=== PATIENT | female | born 1970 | race African-American/Black ===

== ENCOUNTER 2016-09-30 23:06 | Emergency (ER) | payer MEDICAID ==
[~2016-09-30] VITALS: Ht 167.6 cm; Wt 140.6 kg
[~2016-09-30 23:06] MED LIST: IBUPROFEN600 MG ORAL; KEFLEX500 MG ORAL; LISINOPRIL10 MG ORAL; MACROBID100 MG ORAL; PENICILLIN V P500 MG PO; TRAMADOL HCL50 MG ORAL; VICODIN 5-5001 EACH PO; ZOFRAN ODT4 MG ORAL
[2016-09-30] MEDS ORDERED: AMLODIPINE BESYL5 MG ORAL (23:37)
[2016-09-30] MEDS ORDERED: Ketorolac 60mg Inj IM ONE (23:45)
--- NOTE | 2016-10-01 00:51 | Emergency Room Report ---
History of Present Illness General Chief Complaint: Upper Extremity Injury Source: Patient Present Illness HPI Patient is a 46-year-old female who presented after having increased left shoulder and elbow pain after fall. The patient was having increased pain with elbow movement. The patient was unable to straighten out her elbow as well as unable to supinate and pronate without pain. Patient denied any other locations of pain. Patient denied loss of consciousness. She denies neck or wrist pain. Allergies: Coded Allergies: No Known Allergies (Verified , 05/10/14) Patient History Past Medical History: see triage record Reviewed Nursing Documentation: PMH: Agreed, PSxH: Agreed Nursing Documentation-PMH Hx Hypertension: Yes Review of Systems All Other Systems: negative except mentioned in HPI Physical Exam Vital Signs Date Time Temp Pulse Resp B/P Pulse Ox O2 Delivery O2 Flow Rate FiO2 09/30/16 23:32 97.3 64 16 164/84 100 Room Air General Appearance: well appearing, no apparent distress, alert, GCS 15 Head: normocephalic, atraumatic ENT: hearing grossly normal, normal voice Neck: full range of motion, supple Respiratory: no respiratory distress, speaking full sentences Cardiovascular #1: normal inspection, normal peripheral pulses, regular rate, rhythm Gastrointestinal: normal inspection, normal bowel sounds, non tender, soft, no mass Musculoskeletal: no calf tenderness Neurologic: normal inspection, alert, oriented x3, responsive, 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 Differential diagnosis included wasn't limited to contusion, fracture, dislocation, cellulitis among others. X-ray imaging of the left elbow 3 views interpreted by me. Showed a radial head fracture which was minimally displaced. There is a posterior fat pad noted. X- ray of the shoulder 3 views showed normal bony alignment without evident fracture.The patient is advised to follow up with primary care doctor in 1-2 days. She is advised that she would need orthopedic referral . Patient is advised to return if any worsening condition or if any changes in status that are concerning. Last Vital Signs Date Time Temp Pulse Resp B/P Pulse Ox O2 Delivery O2 Flow Rate FiO2 09/30/16 23:32 97.3 64 16 164/84 100 Room Air Status: improved Disposition: HOME, SELF-CARE Condition: Stable Referrals: NON PHYSICIAN (PCP) Tao Smith Oct 01, 2016 00:51
[2016-10-01] MEDS ORDERED: NORCO 5-325 TA1 EAC1 ORAL (00:55)
[2016-10-01] MEDS ORDERED: IBUPROFEN600 MG ORAL (00:55)
[2016-10-01 01:21] VITALS: BP 157/83
[2016-10-01 01:22] VITALS: BP 164/84
--- NOTE | 2016-10-01 09:09 | Diagnostic Imaging Report ---
Indication: Left shoulder pain Technique: Left shoulder 3 views Comparison: None Findings: There is no acute fracture or dislocation. Mild degenerative changes of the acromioclavicular joint are seen. Soft tissues are grossly unremarkable. Impression: No acute osseous abnormality.
--- NOTE | 2016-10-01 09:09 | Diagnostic Imaging Report ---
Indication: Left elbow pain Technique: Left elbow 4 views Comparison: None Findings: There is a nondisplaced radial head fracture with small elbow joint effusion. Bone mineralization is within normal limits. Impression: Nondisplaced radial head fracture with small joint effusion.
== END 2016-10-01 01:22 | disposition home or self-care (01) ==
LOC: EMR 23:45
DX: S52.122A Displaced fracture of head of left radius, initial encounter for closed fracture (principal); M25.512 Pain in left shoulder; W18.30XA Fall on same level, unspecified, initial encounter; Y92.9 Unspecified place or not applicable; Y99.9 Unspecified external cause status; I10 Essential (primary) hypertension
CPT/HCPCS: 96374; 99284

== ENCOUNTER 2016-12-14 17:56 | Emergency (ER) | payer MEDICAID ==
[~2016-12-14] VITALS: Ht 167.6 cm; Wt 136.1 kg
[~2016-12-14 17:56] MED LIST changes: +AMLODIPINE BESYL5 MG ORAL; +NORCO 5-325 TA1 EAC1 ORAL
[2016-12-14] MEDS ORDERED: Ketorolac 30mg Inj IV ONE (18:30)
[2016-12-14 18:51] LABS: BASOPHILS % (AUTO) 0.5 % (0.0-2.0); EOSINOPHILS % (AUTO) 0.4 % (0.0-3.0); LYMPHOCYTES % (AUTO) 26.2 % (20.0-45.0); MEAN CORPUSCULAR HEMOGLOBIN 27.8 PG (27.0-31.0); MEAN CORPUSCULAR HGB CONC 29.7 G/DL (32.0-36.0); MEAN CORPUSCULAR VOLUME 94 FL (80-99); MEAN PLATELET VOLUME 6.8 FL (6.5-10.1); MONOCYTES % (AUTO) 5.9 % (1.0-10.0); PLATELET COUNT 299 K/UL (150-450); RED BLOOD COUNT 3.78 M/UL (4.20-5.40); RED CELL DISTRIBUTION WIDTH 13.9 % (11.6-14.8); WHITE BLOOD COUNT 8.4 K/UL (4.8-10.8)
[2016-12-14 19:00] VITALS: BP 146/61
[2016-12-14 19:15] VITALS: BP 125/94
[2016-12-14 19:16] LABS: ALANINE AMINOTRANSFERASE 8 U/L (3-33); ALBUMIN/GLOBULIN RATIO 0.9 (1.0-2.7); ANION GAP 15 (5-15); ASPARTATE AMINO TRANSFERASE 13 U/L (5-40); CALCIUM 9.2 mg/dL (8.6-10.2); CARBON DIOXIDE 29 mEQ/L (20-30); CHLORIDE 98 mEQ/L (98-107); CREATININE 0.8 mg/dL (0.5-0.9); GLOMERULAR FILTRATION RATE > 60 mL/min (>60); HEMOLYSIS 22; POTASSIUM 3.7 mEQ/L (3.4-4.9); SODIUM 142 mEQ/L (135-145); TOTAL PROTEIN 7.4 g/dL (6.6-8.7); TROPONIN I < 0.30 ng/mL (<=0.30)
--- NOTE | 2016-12-14 20:05 | Emergency Room Report ---
History of Present Illness General Chief Complaint: Chest Pain Source: Patient, Medical Record Present Illness HPI 46 YOF with substernal left sharp 6//10 non radiating chest pain for 24 hours. Pain intermittent. Worse with movement. Had recent normal stress test. Had negative stress test last year. History of HTN on Lisinopril. Denies smoking, ETOH, drug use. Allergies: Coded Allergies: No Known Allergies (Verified , 05/10/14) Patient History Past Medical History: HTN Past Surgical History: none Pertinent Family History: none Social History: Denies: alcohol use, drug use, smoking Now: No Immunizations: UTD Reviewed Nursing Documentation: PMH: Agreed, PSxH: Agreed Nursing Documentation-PMH Past Medical History: No History, Except For Hx Hypertension: Yes Review of Systems All Other Systems: negative except mentioned in HPI Physical Exam Vital Signs Date Time Temp Pulse Resp B/P Pulse Ox O2 Delivery O2 Flow Rate FiO2 4//17 18:03 98.2 66 19 146/61 100 Room Air Sp02 EP Interpretation: reviewed, normal General Appearance: normal inspection, well appearing, no apparent distress, alert, GCS 15, non-toxic, obese Head: normocephalic, atraumatic Eyes: bilateral eye EOMI, bilateral eye PERRL ENT: normal ENT inspection, hearing grossly normal, normal voice Neck: normal inspection, full range of motion, supple, no bony tend Respiratory: normal inspection, lungs clear, normal breath sounds, no rhonchi, no respiratory distress, no retraction, no accessory muscle use, no wheezing, other - Chest pain reproducible Cardiovascular #1: regular rate, rhythm, no edema Gastrointestinal: normal inspection, normal bowel sounds, non tender, soft, no guarding, no hernia Genitourinary: no CVA tenderness Musculoskeletal: normal inspection, back normal, normal range of motion, Nate' s Sign negative Neurologic: normal inspection, alert, oriented x3, responsive, 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 CAD risk factors HTN, obesity. Had 2x recent negative stress tests ECG is NSR with sinus arrythmia Troponin 0, CXR: No PNA, PTX No leuks. H&H stable Pain likely MSK given reproducible, worse with movement, improved with NSAID Advised PMD followup DC home EKG Diagnostic Results Rate: normal Rhythm: NSR ST Segments: no acute changes ASA given to the pt in ED: No Rhythm Strip Diag. Results EP Interpretation: yes Rate: 65 Rhythm: NSR, no PVC's, no ectopy Chest X-Ray Diagnostic Results EP Interpretation: Yes Findings: no consolidation, no effusion, no pneumothorax, no acute cardiopulmonary disease Number of Views: 1 Last Vital Signs Date Time Temp Pulse Resp B/P Pulse Ox O2 Delivery O2 Flow Rate FiO2 12/14/16 19:16 58 15 Room Air 12/14/16 19:15 98.2 125/94 99 Status: improved Disposition: HOME, SELF-CARE Condition: Improved Patient Instructions: Nonspecific Chest Pain Additional Instructions: - Please follow up with your primary care doctor for a stress test - Return to ER for worsening chest pain, shortnes of breath, fever/chills MAICOL LOMBARDI M.D. Dec 14, 2016 20:05
[2016-12-14 20:15] VITALS: BP 144/68
[2016-12-14 20:31] VITALS: BP 144/68
--- NOTE | 2016-12-15 14:49 | Diagnostic Imaging Report ---
Indication: PAIN Technique: One view of the chest Comparison: 03/06/2016 Findings: The heart is enlarged. Lungs and pleural spaces are clear. Impression: Cardiomegaly. No acute process
--- NOTE | 2016-12-15 20:14 | Cardiology Report ---
APPROVED REPORT EKG Measurement Heart [id number] Normal sinus rhythm with sinus arrhythmia Normal ECG
== END 2016-12-14 20:30 | disposition home or self-care (01) ==
LOC: EMR 18:31
DX: R07.89 Other chest pain (principal); I10 Essential (primary) hypertension
CPT/HCPCS: 36415; 71010; 80053; 82550; 82553; 84484; 85025; 93005; 96374; 99284; J1885